=== PATIENT | male | born 1975 ===

== ENCOUNTER 2019-08-26 05:25 | Day surgery (SDC) | payer OTHER ==
[~2019-08-26] VITALS: Ht 172.7 cm; Wt 106.6 kg
[2019-08-26] VITALS (10 sets, daily range): BP systolic 109–136; BP diastolic 71–86
[~2019-08-26 05:25] MED LIST: NKM
[2019-08-26] MEDS ORDERED: oxyCONTIN 20mg tab ORAL ONE (06:00)
[2019-08-26] MEDS ORDERED: ceFAZolin 1gm IVPB IVPB ONE ×2 (06:00)
[2019-08-26] MEDS ORDERED: celeBREX 200mg Cap **SURGERY PATIENTS ONLY ORAL ONE (06:00)
--- NOTE | 2019-08-26 07:19 | Pre-Procedure Note/Attestation ---
Pre-Procedure Note/Attestation Complete Prior to Procedure Planned Procedure: left Procedure Narrative: knee arthroscopy medial menisectomy, chondroplasty, possible removal of loose body Indications for Procedure Pre-Operative Diagnosis: left knee meniscus tear Attestation I attest that I discussed the nature of the procedure; its benefits; risks and complications; and alternatives (and the risks and benefits of such alternatives ), prior to the procedure, with the patient (or the patient's legal public health representative). I attest that, if there was a reasonable possibility of needing a blood transfusion, the patient (or the patient's legal public health representative) was given the [facility] standardized written summary, pursuant to the [place] Blood Safety Act ([place] Health and Safety Code # 1645, as amended). I attest that I re-evaluated the patient just prior to the surgery and that there has been no change in the patient's H&P, except as documented below: Tone Padilla MD Aug 26, 2019 07:19
--- NOTE | 2019-08-26 07:20 | Operative Note - PDOC ---
Operative Note Operative Note Pre-op Diagnosis: left knee meniscus tear Procedure: see op report Post-op Diagnosis: same as pre-op plus Operative Findings: consistent w/pre-op dx studies Anesthesia: MAC Specimen: none Complications: none Condition: stable Estimated Blood Loss: none Implant(s) used?: No Tone Padilla MD Aug 26, 2019 07:19
[2019-08-26] MEDS ORDERED: Ketorolac 30mg Inj ONE (08:31)
[2019-08-26] MEDS ORDERED: Kenalog-40 1ml Vial ONE (08:32)
[2019-08-26] MEDS ORDERED: Lidocaine 1% 10mg/ml/Epi 0.005mg/ml 30ml vial INJ ONE (08:32)
[2019-08-26] MEDS ORDERED: Bupivacaine 0.25% Inj 30ml INJ ONE (08:32)
[2019-08-26] MEDS ORDERED: Duramorph PF 5mg/10ml amp ONE (08:32)
[2019-08-26] MEDS ORDERED: Midazolam 2mg/2ml Inj ONE (08:45)
[2019-08-26] MEDS ORDERED: fentaNYL 100 mcg/2 mL IV ONE (08:45)
[2019-08-26] MEDS ORDERED: NS Irrig 4000ml IRRIG ONE (09:00)
[2019-08-26] MEDS ORDERED: LR 1000ml ONE (09:00)
[2019-08-26] MEDS ORDERED: Duramorph PF 5mg/10ml amp IV ONE (09:25)
[2019-08-26] MEDS ORDERED: Lidocaine 1% MPF 10mg/ml 5ml ONE (09:43)
[2019-08-26] MEDS ORDERED: Propofol 200mg/20ml IV ONE (09:43)
[2019-08-26] MEDS ORDERED: fentaNYL 100 mcg/2 mL IV PRN (09:45)
--- NOTE | 2019-08-26 09:46 | Anethesia Preoperative Eval ---
Anesthesia Pre-op PMH/ROS General Date of Evaluation: Aug 26, 2019 Time of Evaluation: 09:10 Anesthesiologist: kisha ASA Score: ASA 2 Mallampati Score Class I : Soft palate, uvula, fauces, pillars visible Class II: Soft palate, uvula, fauces visible Class III: Soft palate, base of uvula visible Class IV: Only hard plate visible Mallampati Classification: Class II Surgeon: irene Diagnosis: back pain Surgical Procedure: Left knee arthroscopy Anesthesia History: none Family History: no anesthesia problems Allergies: Coded Allergies: No Known Allergies (Unverified , 01/09/16) Medications: see eMAR Patient NPO?: Yes NPO Date: Aug 26, 2019 NPO Time: 00:01 Past Medical History Cardiovascular: Denies: HTN, CAD, [place], valve dz, arrhythmia, other Pulmonary: Denies: asthma, COPD, TRISTAN, other Gastrointestinal/Genitourinary: Reports: other - kidney stones ; Denies: GERD, CRI, ESRD Neurologic/Psychiatric: Denies: dementia, CVA, depression/anxiety, TIA, other Endocrine: Denies: DM, hypothyroidism, steroids, other HEENT: Denies: cataract (L), cataract (R), glaucoma, [place] (L), [place] (R), other Hematology/Immune: Denies: anemia, DVT, bleeding disorder, other Musculoskeletal/Integumentary: Reports: OA; Denies: RA, DJD, DDD, edema, other PSxH Narrative: back [place] Anesthesia Pre-op Phys. Exam Physician Exam Last Vital Signs Date Time Temp Pulse Resp B/P (MAP) Pulse Ox O2 Delivery O2 Flow Rate FiO2 08/26/19 06:40 Room Air 08/26/19 06:35 98.4 66 18 109/77 96 Constitutional: NAD Neurologic: CN 2-12 intact Cardiovascular: RRR Respiratory: CTA Gastrointestinal: S/NT/ND Airway Exam Mallampati Classification 2 Mallampati Score: Class II Neck: thick TMD: 2fb ROM: full Teeth: intact Dentures: no upper, no lower Anesthesia Pre-op A/P Studies Pre-op Studies: EKG - SR Risk Assessment & Plan Plan: general Pre-Antibiotics Drug: ancef Given Within 1 Hr of Incision: Yes Time Given: 09:20 Melonie Moore CRNA Aug 26, 2019 09:46
--- NOTE | 2019-08-26 11:17 | Immediate Post-Op Evaluation ---
Immediate Post-Op Evalulation Immediate Post-Op Evalulation Procedure: knee arthroscopy Date of Evaluation: Aug 26, 2019 Time of Evaluation: 10:00 IV Fluids: 500 Blood Pressure Systolic: 116 Blood Pressure Diastolic: 70 Pulse Rate: 93 Respiratory Rate: 14 O2 Sat by Pulse Oximetry: 99 Temperature (Fahrenheit): 97.6 Nausea: No Vomiting: No Complications none Patient Status: awake, reacts, patent Hydration Status: adequate Drug: ancef Given Within 1 Hr of Incision: Yes Time Given: 09:25 Melonie Moore CRNA Aug 26, 2019 11:17
--- NOTE | 2019-08-26 15:09 | 48 Hour Post Anesthesia Eval ---
Post Anesthesia Evaluation Procedure: knee arthroscopy Date of Evaluation: Aug 26, 2019 Time of Evaluation: 15:08 Blood Pressure Systolic: 123 0: 75 Pulse Rate: 70 Respiratory Rate: 14 O2 Sat by Pulse Oximetry: 98 Airway: patent Nausea: No Vomiting: No Hydration Status: adequate Mental Status/LOC: patient returned to baseline Follow-up Care/Observations: na Post-Anesthesia Complications: none Follow-up care needed: N/A Melonie Moore CRNA Aug 26, 2019 15:09
--- NOTE | 2019-08-26 15:45 | Operative Note - Dictated ---
DATE OF OPERATION: 08/26/2019 PREOPERATIVE DIAGNOSIS: Left knee medial meniscus tear. POSTOPERATIVE DIAGNOSES: 1. Left knee medial meniscus tear. 2. Hypertrophic synovial tissue, medial and lateral patellofemoral compartment. 3. Grade 2 chondral damage, trochlear groove. PROCEDURES: 1. Left knee arthroscopy and partial medial meniscectomy. 2. Synovectomy, medial and lateral patellofemoral compartment. 3. Gentle chondroplasty, trochlear groove. SURGEON: Tone Padilla M.D. ANESTHESIA: MAC with local. INDICATION FOR PROCEDURE: The patient is a pleasant gentleman, who has had progressive left knee pain. He had an MRI, which showed some patellofemoral chondral damage as well as meniscal tear. He failed conservative treatment and elected to undergo left knee arthroscopy with meniscectomy, possible synovectomy, chondroplasty. Risks, limitations, expectations, and complications of the procedure were discussed in detail. All questions were addressed. DESCRIPTION OF PROCEDURE: After informed consent was obtained, the patient was brought to the operating room. The patient was placed under general anesthesia. Left leg was prepped and draped in a sterile manner. Time-out was performed. Inferolateral stab incision was then made. Trocar was introduced into the patellofemoral compartment. There was hypertrophic fat pad and synovial tissue. Medial gutter was free from loose bodies. Medial compartment was entered. There appeared to be remnants of anterior or meniscus tear extending into the anterior horn. Medial working portal was established. A partial meniscectomy using a shaver was performed down to stable rim of tissue. Once that was completed, the intercondylar notch was entered and ACL was noted to be intact. The excision of ligamentum mucosa and synovectomy was extended to lateral compartment. Lateral compartment was entered, free from the meniscal chondral damage. At this point, the camera was placed in the patellofemoral compartment. The synovectomy was completed. Once that was done, he could visualize grade 3 chondral damage in trochlear groove. There was some softening in the trochlear groove. A gentle chondroplasty was performed. Once that was done, the instruments were removed. Portal sites were closed with 3-0 Monocryl sutures. Steri-Strips and a sterile dressing were applied. The patient was awoken and taken to recovery room with stable vital signs. ESTIMATED BLOOD LOSS: Minimal. COMPLICATIONS: None. SPECIMENS: None. IMPLANTS: None. Tone Padilla M.D. DR: MICHEL JOB#: [id number] CC:
[2019-08-26] MEDS ORDERED: D5 1/2NS 1,000 ML IV SCH (18:35)
[2019-08-26] MEDS ORDERED: Tylenol #3 tab (300mg/30mg) ORAL PRN (18:36)
[2019-08-26] MEDS ORDERED: HYDROmorphone 1mg/ml Carpuject SUBQ PRN (18:36)
[2019-08-26] MEDS ORDERED: HYDROcodone/Acetamin 5/325 tab ORAL PRN (18:36)
== END 2019-08-26 11:15 | disposition home or self-care (01) ==
LOC: SUR 05:25
DX: S83.242A Other tear of medial meniscus, current injury, left knee, initial encounter (principal); M67.262 Synovial hypertrophy, not elsewhere classified, left lower leg; X58.XXXA Exposure to other specified factors, initial encounter; Y92.9 Unspecified place or not applicable; M19.90 Unspecified osteoarthritis, unspecified site; Z87.442 Personal history of urinary calculi
CPT/HCPCS: 29876; 29881; J0690; J1885; J2250; J2405; J2704; J3010; J3301; J3490; J7120; 94003; 94150